=== PATIENT | male | born 2000 ===

== ENCOUNTER 2021-04-11 20:55 | Emergency (ER) ==
[~2021-04-11] VITALS: Ht 182.9 cm; Wt 90.3 kg
[2021-04-11] MEDS ORDERED: CLAR10CA3 PO (21:02)
== END 2021-04-12 01:22 | disposition left against medical advice (07) ==
LOC: M ED 20:55
DX: Z53.29 Procedure and treatment not carried out because of patient's decision for other reasons (principal)